=== PATIENT | female | born 1930 | race Two or more races ===

== ENCOUNTER 2021-07-31 09:31 | Inpatient (IN) | payer MEDICARE, OTHER ==
[~2021-07-31] VITALS: Ht 165.1 cm; Wt 83.5 kg
--- NOTE | 2021-07-31 09:38 | NUR ---
DR ABDUL AT THE BEDSIDE
--- NOTE | 2021-07-31 09:42 | NUR ---
The patient is [id number], from home, c/o abd pain x 2 days. Rates pain 8/10. Abdomen soft and non-distended. Denies nausea or vomiting at this time. In room air and denies SOB. Respiration regular and unlabored. Attached to the monitor. Warm blanket provided for comfort. Will continue to monitor the patient.
[2021-07-31] MEDS ORDERED: ONDANSETRON HCL/PF 4 MG/2 ML VIAL ONE (09:44)
[2021-07-31] MEDS ORDERED: MORPHINE SULFATE INJ 4 MG/ML DISP.SYRIN ONE (09:45)
[2021-07-31] MEDS ORDERED: IV NS 0.9% 1,000 ML BAG IV ONE (10:00)
[2021-07-31] MEDS ORDERED: ONDANSETRON HCL/PF 4 MG/2 ML VIAL IVP ONE (10:00)
[2021-07-31] MEDS ORDERED: MORPHINE SULFATE INJ 2 MG/ML DISP.SYRIN IV ONE (10:00)
[2021-07-31] MEDS ORDERED: FLUT1BLS INH (10:14)
[2021-07-31] MEDS ORDERED: LORA-258 PO (10:14)
[2021-07-31] MEDS ORDERED: VALS1TAB8 PO (10:14)
[2021-07-31] MEDS ORDERED: FERR325T24 PO (10:14)
[2021-07-31] MEDS ORDERED: SITA1TAB6 PO (10:14)
[2021-07-31] MEDS ORDERED: ATOR40TA PO (10:14)
[2021-07-31] MEDS ORDERED: CARV3.122 PO (10:14)
--- NOTE | 2021-07-31 10:37 | NUR ---
URINE COLLECTED AND SENT TO THE LAB
[2021-07-31 10:57] LABS: BASOPHILS % (AUTO) 0.2 % (0.0-2.0); EOSINOPHILS % (AUTO) 0.6 % (0.0-6.0); HEMATOCRIT 30 % (33-45); HEMOGLOBIN 9.6 g/dL (11.5-14.8); LYMPHOCYTES # (AUTO) 1.6 K/uL (0.8-4.8); LYMPHOCYTES % (AUTO) 12.8 % (20.0-44.0); MEAN CORPUSCULAR HGB CONC 32 g/dl (31.0-36.0); MEAN CORPUSCULAR VOLUME 89 fL (82-100); MONOCYTES # (AUTO) 1.1 K/uL (0.1-1.30); MONOCYTES % (AUTO) 8.8 % (2.0-12.0); NEUTROPHILS # (AUTO) 9.4 K/uL (1.8-8.9); NEUTROPHILS % (AUTO) 77.6 % (43.0-81.0); PLATELET COUNT (AUTO) 272 K/uL (150-450); RED BLOOD CELL COUNT(AUTO) 3.36 MIL/uL (4.0-5.2); WHITE BLOOD COUNT (AUTO) 12.1 K/uL (4.3-11.0)
[2021-07-31 11:07] LABS: CALCIUM, SERUM 8.7 mg/dL (8.5-10.1); CARBON DIOXIDE 27 mmol/L (21-32); CHLORIDE 100 mmol/L (98-107); CREATININE 1.4 mg/dL (0.6-1.3); GLUCOSE 196 mg/dL (74-106); POTASSIUM 5.3 mmol/L (3.5-5.1); SODIUM SERUM 134 mmol/L (136-145); UREA NITROGEN, BLOOD 48 mg/dL (7-18)
[2021-07-31 11:13] LABS: ALANINE AMINOTRANSFERASE 17 U/L (12-78); ALBUMIN 3.2 g/dL (3.4-5.0); ALKALINE PHOSPHATASE 48 U/L (46-116); ASPARTATE AMINOTRANSFERASE 14 U/L (15-37); BILIRUBIN,DIRECT 0.1 mg/dL (0.0-0.2); BILIRUBIN,TOTAL 0.2 mg/dL (0.2-1.0); LIPASE 178 U/L (73-393); TOTAL PROTEIN, SERUM 7.6 g/dL (6.4-8.2)
[2021-07-31 11:17] LABS: BILIRUBIN,URINE NEGATIVE (NEGATIVE); COLOR,URINE YELLOW (YELLOW); LEUKOCYTE ESTERASE ,URINE TRACE (NEGATIVE); NITRITE, URINE POSITIVE (NEGATIVE); PROTEIN,URINE TRACE mg/dl (NEGATIVE); UGLUCOSE NEGATIVE (NEGATIVE); UROBILINOGEN,URINE 0.2 EU/dL (0.2)
[2021-07-31 11:22] LABS: BACTERIA,URINE Few /HPF (None Seen); RBC,URINE NONE SEEN /HPF (0-2); SQUAMOUS EPITHELIAL CELL,UR Moderate /HPF (None Seen)
--- NOTE | 2021-07-31 11:42 | NUR ---
MOVE SHEET SUBMITTED.
--- NOTE | 2021-07-31 11:50 | NUR ---
THE PATIENT IS TAKEN TO CT
--- NOTE | 2021-07-31 11:57 | NUR ---
THE PATIENT IS BACK FROM CT
[2021-07-31] MEDS ORDERED: CEFTRIAXONE 1GM BAG (ER ONLY) 50 ML IV ONE ×2 (11:58→12:00)
[2021-07-31] MEDS ORDERED: LORAZEPAM 0.5 MG TABLET PO PRN (13:00)
[2021-07-31] MEDS ORDERED: Z GUARD REMEDY 2 OZ OINT TP PRN (13:00)
[2021-07-31] MEDS ORDERED: MAG HYDROX/AL HYDROX/SIMETH 30 ML UDC PO PRN (13:00)
[2021-07-31] MEDS ORDERED: MAGNESIUM HYDROXIDE 30 ML UDC PO PRN (13:00)
[2021-07-31] MEDS ORDERED: IV NS 0.9% 1,000 ML IV PRN (13:00)
[2021-07-31] MEDS ORDERED: ONDANSETRON HCL/PF 4 MG/2 ML VIAL IVP PRN (13:00)
[2021-07-31] MEDS ORDERED: ACETAMINOPHEN 325 MG TABLET PO PRN (13:00)
[2021-07-31] MEDS ORDERED: MORPHINE SULFATE INJ 2 MG/ML DISP.SYRIN IV PRN (13:00)
[2021-07-31] MEDS ORDERED: CARVEDILOL 3.125 MG TABLET ONE (16:33)
[2021-07-31] MEDS ORDERED: CARVEDILOL 3.125 MG TABLET PO SCH (17:00)
--- NOTE | 2021-07-31 19:10 | NUR ---
REPORT GIVEN TO NURSE TOSCANO
--- NOTE | 2021-07-31 20:16 | NUR ---
CALLED TO BED 306-1
--- NOTE | 2021-07-31 21:17 | NUR ---
REPORT GIVEN TO ESTUARDO FINE FOR OBEY
--- NOTE | 2021-07-31 21:38 | NUR ---
PT TRANSFERRED TO TELE 306-2 VIA ACLS PROTOCOL IN STABLE CONDITION, ACCOMPANIED BY DILIP FINE AND MARGARITA EMT
[2021-07-31 21:50] VITALS: BP 143/52
[2021-07-31] MEDS ORDERED: ATORVASTATIN 40 MG TABLET PO SCH (22:00)
--- NOTE | 2021-07-31 22:20 | NUR ---
Patient brought up by RN and EMT at 2140. upon taking initial VS patient's O2 sat was 80% on 3L via NC. Patient appearing anxious and SOB. patient bumped up to 6L and O2 sat hovered between 94 and 96% for a full 2 minutes. pulse oximeter kept on patient. Other Vs - temp 97.4, HR 99, RR 20, B/P 143/52. Patient is alert and oriented to self and place x2. attempted to ask patient questions about PMH and living situation but pt responded mostly in frisian, speaks some but little namibian. Patient was able to say that she has R sided abdominal pain and some leg pain. Patient breathing using accessory muscles. Lung sounds clear at top but diminished at base of lung. Heart rate tachy but rhythm regular upon auscultation. Abdomen distended and tender, with all bowel sounds hypoactive. BLE 3+ pitting edema with some discoloration no other skin issues. Bed in lowest position with 3 side rails up and in locked position -high fowlers for breathing comfort. Tele monitor applied. Patient's O2 sat upon leaving room after assessment still 95%.
--- NOTE | 2021-07-31 22:34 | NUR ---
Called patient's contact Lou and received info for PMH and background information.
--- NOTE | 2021-07-31 22:40 | NUR ---
Messaged java application engineer. about respiratory status said okay for STAT CXR. and high potassium level new order give kayexalate 15G PO now. also messaged about results from CT abd/pelvis ...awaiting reply.
--- NOTE | 2021-07-31 22:42 | NUR ---
Called radiology about STAT CXR
--- NOTE | 2021-07-31 22:44 | NUR ---
Patient inconsistent on tele monitor. went to check on patient -In room patient unresponsive with no pulse and agonal breathing. Code blue called/started.
[2021-07-31] MEDS ORDERED: SODIUM POLYSTYRENE SULFONATE 15 G/60 ML BOTTLE PO ONE (23:00)
--- NOTE | 2021-07-31 23:10 | NUR ---
RT NOTE RT ARRIVED TO ROOM PER CODE BLUE CALLED. CPR STARTED. PATIENT INTUBATED WITH ETT 7.0 @ 21CM AT THE LIP. COLOR CHANGE ON CO2 DETECTOR NOTED. BILATERAL BREATH SOUNDS AND EQUAL CHEST RISE NOTED. PENDING TRANSFER TO ICU AT THIS TIME.
--- NOTE | 2021-07-31 23:25 | NUR ---
RT NOTE PATIENT TRANSFERED TO ICU AND PLACED ON VENT SETTINGS OF AC16 VT 500 100% PEEP +5. NO RESPIRATORY DISTRESS NOTED AT THIS TIME. MECHANICAL VENT PLUGGED INTO RED OUTLET. ALARMS ARE SET AND AUDIBLE. EMERGENCY EQUIPMENT AT PATIENT BEDSIDE. WILL CONTINUE TO MONITOR PATIENT.
--- NOTE | 2021-07-31 23:29 | NUR ---
Patient transferred to ICU using ACLS protocol
[2021-07-31] MEDS ORDERED: HEPARIN INFUSION/D5W 500 ML IV PRN (23:30)
[2021-07-31] MEDS ORDERED: SODIUM BICARBONATE SYR 50 MEQ/50 ML DISP.SYRIN IV ONE (23:41)
[2021-07-31] MEDS ORDERED: EPINEPHRINE (1:10,000) SYRINGE 1 MG/10 ML DISP.SYRIN IVP ONE (23:41)
[2021-07-31] MEDS ORDERED: CALCIUM CHLORIDE 1,000 MG/10 ML DISP.SYRIN IV ONE (23:41)
--- NOTE | 2021-08-01 00:25 | NUR ---
@ 07/31/2021 2327 RECEIVED PT FROM 3W S/P LUPE QUAN PT IS INTUBATED AND RT IS BAGGING THE PT, WHEN I CHECK THE PULSE PT IS PULSELESS LUPE QUAN WAS CALLED,CPR INITIATED SEE LUPE QUAN SHEET
--- NOTE | 2021-08-01 00:29 | NUR ---
CONTACT [facility] FOR REFERRAL, TALK TO MS CARTER AND THEY SAID THE REFERRAL WAS DECLINE AND WE CAN RELEASE THE BODY TO THE FAMILY WITH REFERRAL # [id number] [phone]
--- NOTE | 2021-08-01 00:30 | NUR ---
CONTACT [facility] DUE TO PT WAS LESS THAN 24 HR ADMISSION TALK TO MR AGARWAL AND HE SAID PT IS NOT CORONERS CASE AND MAY RELEASE THE BODY TO THE FAMILY
[2021-08-01] MEDS ORDERED: FERROUS SULFATE (325 MG) 325 MG/TAB TABLET PO SCH (09:00)
[2021-08-01] MEDS ORDERED: FLUTICASONE/VILANTEROL 1 EACH BLST.W.DEV IH SCH (09:00)
[2021-08-01] MEDS ORDERED: CEFTRIAXONE 1 G in IV D5W 50 ML IV SCH (12:00)
== END 2021-07-31 23:42 | DRG 393 ==
LOC: ER 09:40 → OBSVTOIN 15:52 → TRANSITION 15:52 → UNDOADMOB 15:52 → TRANSITION 20:31 → TELE 20:31 → ICU 23:20 → UNDODISOB 23:42
PROVIDERS: ADMIT Internal Medicine; ATTEND Internal Medicine
PROC: 5A1935Z Respiratory Ventilation, Less than 24 Consecutive Hours (ICD-10-PCS; principal; 2021-07-31)
PROC: 0BH17EZ Insertion of Endotracheal Airway into Trachea, Via Natural or Artificial Opening (ICD-10-PCS; 2021-07-31)
DX: K55.069 Acute infarction of intestine, part and extent unspecified (principal); N17.0 Acute kidney failure with tubular necrosis; E43 Unspecified severe protein-calorie malnutrition; N39.0 Urinary tract infection, site not specified; E87.1 Hypo-osmolality and hyponatremia; R57.0 Cardiogenic shock; Z20.822 Contact with and (suspected) exposure to COVID-19; E11.9 Type 2 diabetes mellitus without complications; I10 Essential (primary) hypertension; F41.9 Anxiety disorder, unspecified; M19.90 Unspecified osteoarthritis, unspecified site; Z79.51 Long term (current) use of inhaled steroids; Z79.84 Long term (current) use of oral hypoglycemic drugs; Z79.899 Other long term (current) drug therapy; I46.9 Cardiac arrest, cause unspecified; I70.0 Atherosclerosis of aorta; E86.1 Hypovolemia; E87.5 Hyperkalemia; E66.9 Obesity, unspecified; D64.9 Anemia, unspecified; Z68.30 Body mass index [BMI] 30.0-30.9, adult; I25.10 Atherosclerotic heart disease of native coronary artery without angina pectoris; K57.30 Diverticulosis of large intestine without perforation or abscess without bleeding; M48.10 Ankylosing hyperostosis [Forestier], site unspecified
CPT/HCPCS: 36415; 80048-TC; 80076-TC; 81001; 83690-TC; 85025-TC; 87040-TC; 87081-TC; 87086-TC; 92950-TC; 94002-TC; C9803; G0378; J0171; J0696; J2270; J2405; J3490; J7030; J7060